=== PATIENT | female | born 1955 | race Hispanic/Latino ===

== ENCOUNTER → 2018-07-17 | Day surgery (SDC) | payer BC ==
[~2018-07-17] MED LIST: CRESTOR10 MG PO; DILTIAZEM 24HR240 M1 PO; FENTANYL CITRATE/PF 100MCG/2 ML INJ ONE; HYOSCYAMINE SULFATE 0.5 MG/ML INJ ONE; IBANDRONATE SO150 MG PO; LISINOPRIL/HCTZ PO; MIDAZOLAM HCL 2 MG/2 ML VIAL ONE; PROMETHAZINE HC25 M1 PO; PROPOFOL IV EMULSION 10 MG/ML 50 ML VIAL ONE; VIT B12 INJ
--- NOTE | 2018-07-17 14:07 | Operative Report ---
DATE OF PROCEDURE: July 17, 2018 REFERRING PHYSICIAN: Dr. Josiah Santos. PROCEDURES PERFORMED 1. Esophagogastroduodenoscopy with biopsies. 2. Colonoscopy with polypectomy. INDICATIONS FOR EGD: Upper abdominal pain, nausea. INDICATIONS FOR COLONOSCOPY: Colorectal cancer screening. MEDICATION: Patient was done under MAC. Please see anesthesiologist's note. PROCEDURE: With the patient in left lateral decubitus position, a flexible fiberoptic Olympus gastroscope was introduced into the esophagus under direct visualization without any difficulty. Multiple flat hyperplastic-appearing lesions up to 5 mm in size were noted throughout the esophagus and biopsies were obtained. There was a single erosion noted in the distal esophagus. The scope was then advanced with ease into the stomach, traversing a small sliding hiatal hernia. Mucosa overlying the antrum and the body revealed some patchy erythema and moderate edema and biopsies were obtained, sent to stain for H. pylori. The pylorus appeared to be somewhat stenotic, but opened up nicely with repetitive intubations with the scope which was advanced all the way to the second portion of the duodenum. Mucosa overlying the proximal second portion grossly appeared to be within normal limits. Several minute duodenal ulcers were noted in the duodenal bulb without active bleeding or stigmata of recent hemorrhage. The scope was then withdrawn back into the stomach and retroflexed, and mucosa overlying the fundus and the cardia appeared to be within normal limits. The scope was then straightened out and was subsequently withdrawn. Patient tolerated procedure well. IMPRESSION 1. Multiple scattered flat hyperplastic-appearing lesions up to 5 mm in size noted throughout the esophagus, biopsies were obtained. 2. Distal erosive esophagitis. 3. Small sliding hiatal hernia. 4. Gastritis, biopsied, biopsies sent to stain for Helicobacter pylori. 5. Duodenal ulcers, bulb, multiple, minute, without active bleeding or stigmata of recent hemorrhage. PLAN: Follow up histology. Initiate Protonix 40 mg 1 p.o. q.a.m. a.c. Patient was then turned around and after adequate lubrication of the anal canal, the flexible fiberoptic Olympus colonoscope was inserted into the rectum with ease and advanced all the way to the cecum. Mucosa overlying the cecum appeared to be within normal limits. The scope was then withdrawn slowly. One polyp was hot biopsied from the ascending colon. The transverse colon appeared to be within normal limits. One polyp was hot biopsied from the descending colon. One polyp was snared from the transverse colon. The rectum appeared to be within normal limits. The scope was then retroflexed into the distal rectum and small internal hemorrhoids were noted, none of which was actively bleeding. The scope was then straightened out and was subsequently withdrawn. Patient tolerated procedure well. IMPRESSION 1. Ascending colon polyp, hot biopsied. 2. Descending colon polyp, hot biopsied. 3. Sigmoid colon polyp, snared. 4. Internal hemorrhoids, none actively bleeding. PLAN: Followup histology. Initiate high-fiber, low-fat diet. Initiate high-fiber supplement. Patient might benefit from a followup colonoscopy in 3 years. Job#: [id number] KISHAN cc:JOSIAH SANTOS MD
--- OUTSIDE RECORDS SUMMARY | 2018-07-19 10:43 | XMS REPORT | Clinical Summary ---
Author Author [facility] Address Unknown Phone Unavailable Care Team Providers Care Vacation Sales Advisor Name Role Phone Josiah Fagan MD PCP Allergies Comments Active Allergy Reactions Severity Noted Date Aspirin 03/05/2017 Medications End Date Status Medication Sig Dispensed Refills Start Date Active fluticasone (FLONASE) 50 0 mcg/actuation nasal spray 7 Active ibandronate (BONIVA) 150 0 mg tablet 7 Active mirtazapine (REMERON) 15 0 MG tablet 7 Active hydroCHLOROthiazide 0 (MICROZIDE) 12.5 mg 7 capsule Active rosuvastatin (CRESTOR) 10 0 MG tablet 7 Active lisinopril 0 (PRINIVIL,ZESTRIL) 30 mg 7 tablet 05/27/2018 gabapentin (NEURONTIN) Take 1 90 capsule 11 100 mg capsule capsule (100 7 mg total) by mouth 3 (three) times a day. Active Problems No known active problems Family History Medical History Relation Name Comments Hypertension Father Hypertension Mother Relation Name Status Comments Father Alive Mother Alive Social History Date Tobacco Use Types Packs/Day Years Used Never Smoker Alcohol Use Drinks/Week oz/Week Comments No Sex Assigned at Date Recorded Not on file Industry Job Start Date Occupation Not on file Not on file Not on file Travel End Travel History Travel Start No recent travel history available. Last Filed Vital Signs Not on file Plan of Treatment Health Maintenance Due Date Last Done Comments CERVICAL CANCER SCREENING 1976 BREAST CANCER SCREENING 2005 COLON CANCER SCREENING 2005 SHINGRIX VACCINE (1 of 2) 2005 ZOSTER VACCINE 2015 INFLUENZA VACCINE 03/17/2018 Results Not on fileafter 07/18/2017 Insurance Payer Benefit Subscriber ID Type Phone Address Plan / Group BCBS BCBS xxxxxxxxxxxx PPO CHOICE PPO/AVINASH [employer]ELASCO PPO Advance Directives Patient has advance care planning documents on file. For more information, cedric armendariz contact: George Grace [phone] [place] [address]
== END | disposition home or self-care (01) ==
LOC: OR 07:01
PROVIDERS: ATTEND Internal Medicine Gastroenterology
DX: Z12.11 Encounter for screening for malignant neoplasm of colon (principal); D12.4 Benign neoplasm of descending colon; D12.5 Benign neoplasm of sigmoid colon; K29.70 Gastritis, unspecified, without bleeding; K26.9 Duodenal ulcer, unspecified as acute or chronic, without hemorrhage or perforation; K21.0 Gastro-esophageal reflux disease with esophagitis; K22.10 Ulcer of esophagus without bleeding; K44.9 Diaphragmatic hernia without obstruction or gangrene; K64.8 Other hemorrhoids; I10 Essential (primary) hypertension; Z88.6 Allergy status to analgesic agent
CPT/HCPCS: 43239; 45384; 45385; J1980; J2250; 45378